=== PATIENT | male | born 1980 | race African-American/Black ===

== ENCOUNTER 2017-10-28 00:01 | Emergency (ER) | payer BC ==
[2017-10-28] MEDS: hydrOXYzine PAMOATE 25 MG CAPSULE PO (01:46)
[2017-10-28] MEDS: cloNIDine HCL 0.1 MG TABLET PO (01:46)
== END 2017-10-28 03:01 | disposition home or self-care (01) ==
LOC: ER 00:01
DX: I10 Essential (primary) hypertension (principal); R42 Dizziness and giddiness
CPT/HCPCS: 99283; Q0177